=== PATIENT | female | born 1950 | race Caucasian/White ===

== ENCOUNTER 2021-02-26 17:48 | Emergency (ER) | payer MEDICARE, SELFPAY ==
--- NOTE | 2021-02-26 17:54 | ED.SKABFB ---
HPI - Skin/Abscess/Foreign Bdy General Chief complaint: Skin/Abscess/Foreign Body Stated complaint: Body Rash Time Seen by Provider: 02/26/21 17:55 Source: patient and RN notes reviewed History of Present Illness HPI narrative: Patient is a 70-year-old female who presents the urgent care with complaints of a rash everywhere. Patient states that it started on Monday evening and seems to have progressively gotten worse with increased itching. Patient states that she has been pretty stressed out and anxious over her oldest granddaughter dropping out of school. Patient states that she has not taken any new medications or used any new detergents, creams or lotions. States that she did feel like she had lip swelling a few nights ago which is since resolved. Patient states she did take oxycodone, since fracturing her foot on 10 February. Patient states that she quit taking that medication last Monday and did not seem to have any reaction while taking the medication. Denies of any known bug bite. Denies of any recent fevers. Currently denies of shortness of breath, difficulty swallowing or chest pains. No other acute complaints. No acute distress noted. Patient and spouse aware of the plan of care. Some parts of this dictation were generated by voice recognition software and may contain typographical and/or grammatical inaccuracies. Related Data Home Medications Medication Instructions Recorded Confirmed estradiol VAGINAL 2XW 02/26/21 hydrochlorothiazide 25 mg PO DAILY 02/26/21 02/26/21 losartan 50 mg PO DAILY 02/26/21 02/26/21 Allergies Allergy/AdvReac Type Severity Reaction Status Date / Time ampicillin Allergy Mild Hives / Verified 02/26/21 18:10 Red Face lisinopril Allergy Unknown Cough Verified 02/26/21 18:10 Tetracyclines Allergy Unknown Rash Verified 02/26/21 18:10 Review of Systems Review of Systems: Narrative: CONSTITUTIONAL: Denies fever, chills, or sweats. EYES: Denies visual changes, redness, or discharge. ENT: Denies rhinorrhea, congestion, sore throat, or otalgia. CARDIOVASCULAR: Denies chest pain, palpitations, or edema. RESPIRATORY: Denies cough or dyspnea. GASTROINTESTINAL: Denies abdominal pain, nausea, vomiting, or diarrhea. GENITOURINARY: Denies dysuria or hematuria. SKIN: Itchy red body rash MUSCULOSKELETAL: Denies back pain, joint pain, or myalgia. NEUROLOGIC: Denies headache, numbness, or weakness. All other systems reviewed are negative, except as documented in HPI. PMFSH Comments At the time of my signature, I reviewed and agree with the nursing past medical, surgical, social, and family history. There is no relevant family history pertinent to the patient complaint. Exam Narrative: Exam Narrative: GENERAL: This is a well-nourished, well-developed patient, in no apparent distress. HEAD: normocephalic, atraumatic. EYES: PERRL. Sclera clear/white. Vision is grossly intact. EARS: External ears normal NOSE: External nose normal with no obvious nasal discharge, nares without redness, no rhinorrhea. THROAT: Mucous membranes moist, posterior pharynx clear. NECK: Neck supple, no palpable soft tissue swelling CARDIOVASCULAR: Regular rate and rhythm without murmurs, gallops, or rubs. RESPIRATORY: Clear to auscultation. Breath sounds equal bilaterally. No wheezes, rales, or rhonchi. GASTROINTESTINAL: Abdomen soft, non-tender, nondistended. Bowel sounds are active. No hepato-splenomegaly, or palpable masses. No guarding. SKIN: Raised erythemic pruritic urticaria noted to bilateral arms, thighs, chest, neck, scalp and face NEURO: awake, alert, and oriented to person, place and time. There were no obvious focal neurologic abnormalities. EXTREMITIES: No clubbing, cyanosis, or edema. Course Vital Signs Vital signs: Vital Signs Temperature 100 F H 02/26/21 17:58 Pulse Rate 95 02/26/21 17:58 Respiratory Rate 18 02/26/21 17:58 Blood Pressure 143/72 H 02/26/21 17:58 Pulse Oximetry 97 02/26/21
[2021-02-26 17:58] VITALS: BP 143/72; PULSE 95; RESP 18; TEMP 37.7; O2SAT 97
[2021-02-26 18:12] VITALS: BP 143/72; PULSE 95; RESP 18; TEMP 37.7; O2SAT 97
== END 2021-02-26 18:17 | disposition home or self-care (01) ==
PROVIDERS: Emergency Provider Nurse Practitioner Family
DX: L50.9 Urticaria, unspecified (principal); I10 Essential (primary) hypertension; F41.9 Anxiety disorder, unspecified
CPT/HCPCS: 99203; G0463

== ENCOUNTER 2022-09-06 11:36 | Emergency (ER) | payer MEDICARE, SELFPAY ==
--- NOTE | ~2022-09-06 | XR_ITS ---
Left wrist Technique: PA, oblique, lateral, and ulnar deviation views were obtained. Clinical History: Pain Findings: No acute fracture or dislocation is seen. Osseous alignment is anatomic. Joint spaces are p reserved. Soft tissues are unremarkable. Impression: Unremarkable left wrist radiographs. Reviewed, dictated and finalized at location . [employer] Impression: Unremarkable left wrist radiographs.
[2022-09-06 11:44] VITALS: BP 130/58; PULSE 62; RESP 16; TEMP 36; O2SAT 96
--- NOTE | 2022-09-06 11:57 | ED.UPPEXIN ---
HPI - Extremity Injury (Upper) General Chief Complaint: Extremity Injury, Upper Stated Complaint: left wrist injury Time Seen by Provider: 09/06/22 11:58 Source: patient and RN notes reviewed Mode of arrival: ambulatory Limitations: no limitations History of Present Illness HPI narrative: 72-year-old female presents concern for left wrist pain for 1 month. She reports she twisted the wrist 1 month ago and it has been hurting since then. She reports history of a ganglion cyst for which she sees a surgeon, she has an appointment with them on September 21. Reports she has been taking Tylenol and using a brace without relief. Reports pain wakes her up at night. MD complaint: injury to: left and wrist Related Data Home Medications Medication Instructions Recorded Confirmed estradiol 0.01% (0.1 mg/gram) vaginal 2XW 02/26/21 vaginal cream hydrochlorothiazide 25 mg tablet 25 mg PO DAILY 02/26/21 02/26/21 losartan 50 mg tablet mg 09/06/22 simvastatin 20 mg tablet mg 09/06/22 vibegron 75 mg tablet (Gemtesa) mg 09/06/22 Allergies Allergy/AdvReac Type Severity Reaction Status Date / Time ampicillin Allergy Mild Hives / Verified 02/26/21 18:10 Red Face lisinopril Allergy Unknown Cough Verified 02/26/21 18:10 Tetracyclines Allergy Unknown Rash Verified 02/26/21 18:10 Review of Systems Review of Systems: CONSTITUTIONAL: Denies malaise, chills, sweats, or fever. SKIN: Denies rash or itching, open skin, laceration, abrasion, redness, warmth, swelling. MUSCULOSKELETAL: Reports left wrist pain NEUROLOGIC: Denies numbness, weakness All systems reviewed & are unremarkable except as noted in HPI and below PMFSH Comments At time of signature, agree with nursing past medical, surgical, social and family history. There is no relevant family history pertinent to the presenting complaint Exam Narrative: GENERAL: Well-appearing, well-nourished, and in no acute distress. HEAD: Normocephalic, atraumatic. EYES: PERRLA, conjunctivae clear NECK: Supple. CHEST: Speaks in full sentences. No respiratory distress. HEART: Regular rate and rhythm. Normal and equal peripheral pulses. EXTREMITIES: Left wrist, hand, digits have normal strength and sensation, normal range of motion. No edema or ecchymosis. 5/5 strength with [xxx] flexion and extension. Normal sensation with sensitivity to light touch and pain. No point tenderness. No open wounds, no skin tenting, no devitalized tissue or atrophy, no trophic changes, no obvious deformity, alignment normal, nearby joints and structures intact. Distal pulses palpable and equal bilaterally, skin warm, dry, pink. Capillary refill less than 3 seconds. SKIN: Warm, dry, no rash. NEURO: Alert and oriented x3. PSYCH: Normal mood and affect Course Course Emergency Course: Patient is aware of diagnosis, understands and agrees to treatment plan. Anticipatory guidance given. Patient agrees to follow-up as directed and is aware of reasons to seek care at the emergency department. Portions of this record may have been created with voice recognition software Level of Care: Express Care Visit Vital Signs Vital signs: Vital Signs Temperature 96.8 F L 09/06/22 11:44 Pulse Rate 62 09/06/22 11:44 Respiratory Rate 16 09/06/22 11:44 Blood Pressure 130/58 L 09/06/22 11:44 Pulse Oximetry 96 09/06/22 11:44 Oxygen Delivery Room Air 09/06/22 11:44 Temperature 96.8 F L 09/06/22 11:44 Pulse Rate 62 09/06/22 11:44 Respiratory Rate 16 09/06/22 11:44 Blood Pressure 130/58 L 09/06/22 11:44 Pulse Oximetry 96 09/06/22 11:44 Oxygen Delivery Room Air 09/06/22 11:44 Reviewed. MDM - Extremity Injury (Upper) Imaging Data My impression: Images reviewed, interpreted by radiologist, agree, see report. Radiologist's impression: Left wrist Technique: PA, oblique, lateral, and ulnar deviation views were obtained. Clinical History: Pain Findings: No acute fracture or di
== END 2022-09-06 12:24 | disposition home or self-care (01) ==
PROVIDERS: Emergency Provider Nurse Practitioner
DX: S63.502A Unspecified sprain of left wrist, initial encounter (principal); X50.9XXA Other and unspecified overexertion or strenuous movements or postures, initial encounter; E78.00 Pure hypercholesterolemia, unspecified; I10 Essential (primary) hypertension
CPT/HCPCS: 73110; 99213; G0463